=== PATIENT | male | born 1975 | race Caucasian/White ===

== ENCOUNTER 2024-01-23 12:32 | Emergency (ER) | payer MEDICAID ==
[~2024-01-23] VITALS: Ht 172.7 cm; Wt 65.8 kg
[2024-01-23 13:35] VITALS: BP 121/79; TEMP 97.8; O2SAT 99
== END 2024-01-23 13:22 | disposition home or self-care (01) ==
LOC: ER 12:32
DX: K40.90 Unilateral inguinal hernia, without obstruction or gangrene, not specified as recurrent (principal); M19.90 Unspecified osteoarthritis, unspecified site; F17.200 Nicotine dependence, unspecified, uncomplicated
CPT/HCPCS: A4606; A4663